=== PATIENT | male | born 1965 | race Caucasian/White ===

== ENCOUNTER → 2020-04-14 | Outpatient (CLI) | payer OTHER ==
[~2020-04-14] MED LIST: ALBUTEROL2.5 MG/3 M INH; ASPIRIN EC81 MG PO; ATORVASTATIN CA20 MG PO; BREO ELLIPTA 11 EACH INH; CLOPIDOGREL75 MG PO; COZAAR 25MG TAB25 MG PO; FISH OIL 1,0001 EAC4 PO; FLOMAX0.4 MG PO; HYDRALAZINE HCL25 MG PO; INCRUSE ELLI62.5 MCG INH; LIPITOR TAB 2020 MG PO; METOPROLOL SUCC50 MG PO; NORVASC2.5 MG PO; PROSCAR5 MG PO; PROVENTIL HFA6.7 GM INH; TOPROL XL25 MG PO; VITAMIN D350000 UNIT PO
[2020-04-14 12:11] LABS: HEMOGLOBIN 13.8 gm/dl (14.0-17.5); RED BLOOD COUNT 4.23 M/UL (4.20-5.50); WHITE BLOOD COUNT 10.7 K/UL (4.5-11.0)
== END ==
LOC: LAB 11:11
PROVIDERS: Urology
DX: R53.83 Other fatigue (principal)
CPT/HCPCS: 36415; 85027

== ENCOUNTER 2021-06-18 23:02 | Emergency (ER) | payer OTHER ==
[2021-06-19 00:47] LABS: HEMOGLOBIN 13.8 gm/dl (14.0-17.5); RED BLOOD COUNT 4.23 M/UL (4.20-5.50); WHITE BLOOD COUNT 11.6 K/UL (4.5-11.0)
[2021-06-19 01:13] LABS: BUN/CREATININE RATIO 16 (0-10)
== END 2021-06-19 02:49 | disposition left against medical advice (07) ==
LOC: ER1 23:02
PROVIDERS: Student in an Organized Health Care Education/Training Program
DX: M25.512 Pain in left shoulder (principal); I11.9 Hypertensive heart disease without heart failure
CPT/HCPCS: 71045; 80053; 82550; 82553; 84484; 85025; 93005; 99281